=== PATIENT | female | born 1965 | race African-American/Black ===

== ENCOUNTER 2017-08-10 18:54 | Emergency (ER) | payer SELFPAY ==
[~2017-08-10] VITALS: Ht 152.4 cm; Wt 85.7 kg
[~2017-08-10 18:54] MED LIST: AMLODIPINE BESY10 MG ORAL; AUGMENTIN 875-1 EAC1 ORAL; BENAZEPRIL HCL20 MG ORAL; METFORMIN HCL750 MG ORAL; NORCO 5-325 TA1 EACH ORAL; SIMVASTATIN20 MG ORAL; TENORMIN25 MG ORAL
[2017-08-10 19:19] VITALS: BP 154/74
[2017-08-10] MEDS ORDERED: Norco 5mg/325mg tab ORAL ONE (19:45)
--- NOTE | 2017-08-10 19:45 | Emergency Room Report ---
History of Present Illness General Chief Complaint: Upper Extremity Injury Source: Patient (Jess Houston) Present Illness HPI Patient is a 51-year-old female presents today with complaints of left wrist pain that began yesterday. Today she denies any falls or injuries. She has pain began while she was at work. As she had states he is currently 9 and 10 in severity and has been using Motrin with minimal relief. She denies numbness , tingling, loss of sensation. (Jess Houston) Allergies: Coded Allergies: No Known Allergies (Verified Allergy, Unknown, 10/19/06) Patient History Now: No - hysterectomy : 2 Para: 1 Reviewed Nursing Documentation: PMH: Agreed, PSxH: Agreed (Jess Houston) Nursing Documentation-PMH Hx Hypertension: Yes Hx Diabetes: Yes (Jess Houston) Review of Systems Musculoskeletal: Reports: joint pain - left wrist pain All Other Systems: negative except mentioned in HPI (Jess Houston) Physical Exam Vital Signs Date Time Temp Pulse Resp B/P (MAP) Pulse Ox O2 Delivery O2 Flow Rate FiO2 08/10/17 19:16 101.1 73 18 154/74 98 Room Air Sp02 EP Interpretation: reviewed, normal General Appearance: no apparent distress, alert, GCS 15, non-toxic Head: normocephalic, atraumatic Eyes: bilateral eye normal inspection, bilateral eye PERRL ENT: hearing grossly normal, normal pharynx, no angioedema, normal voice Neck: full range of motion, supple/symm/no masses Respiratory: chest non-tender, lungs clear, normal breath sounds, speaking full sentences Cardiovascular #1: regular rate, rhythm, no edema Cardiovascular #2: 2+ carotid (R), 2+ carotid (L), 2+ radial (R), 2+ radial (L) , 2+ dorsalis pedis (R), 2+ dorsalis pedis (L) Gastrointestinal: normal bowel sounds, non tender, soft, non-distended, no guarding, no rebound Rectal: deferred Genitourinary: normal inspection, no CVA tenderness Musculoskeletal: back normal, gait/station normal, normal range of motion, other - left wrist pain Neurologic: alert, oriented x3, responsive, motor strength/tone normal, sensory intact, speech normal, other - radial pulse present and equal Psychiatric: judgement/insight normal, memory normal, mood/affect normal, no suicidal/homicidal ideation Reflexes: 3+ bicep (R), 3+ bicep (L), 3+ tricep (R), 3+ tricep (L), 3+ knee (R) , 3+ knee (L) Skin: normal color, no rash, warm/dry, well hydrated Lymphatic: no adenopathy (Jess Houston) Medical Decision Making PA Attestation Supervising physician is Dr. Cedeno (Jess Houston) Diagnostic Impression: Primary Impression: Left wrist sprain ER Course No evidence of fracture on x-ray. Patient is placed in a volar splint of the left wrist, neurovascularly intact before and after splint is placed. Evaluation at 2011, patient states it is improving with medication. She is discharged home with instruction to follow up with PCP for further evaluation and management. Patient understands and is agreeable plan. (Jess Houston) ER Course I have reviewed the PA's interpretation of Xray results and agree with findings. (Anson Cedeno M.D.) Other X-Ray Diagnostic Results Other X-Ray Diagnostic Results : # of Views/Limited Vs Complete: 3 View Indication: Pain EP Interpretation: Yes PA Xray: Interpretation reviewed Interpretation: no dislocation, no soft tissue swelling, no fractures Impression: No acute disease PA Scribe Text AJ (Jess Houston.AConsuelo) Last Vital Signs Date Time Temp Pulse Resp B/P (MAP) Pulse Ox O2 Delivery O2 Flow Rate FiO2 08/10/17 19:19 101.1 73 18 154/74 98 Room Air Status: improved (Jess Houston P.AConsuelo) Disposition: HOME, SELF-CARE Condition: Stable Scripts Tramadol Hcl* (ULTRAM*) 50 Mg Tablet 50 MG ORAL Q6H Y for For Pain, #30 TAB 0 Refills Prov: Jess Houston 08/10/17 Patient Instructions: Wrist Sprain Jess Houston Aug 10, 2017 19:45 Anson Cedeno M.D. Aug 15, 2017 06:50
[2017-08-10] MEDS ORDERED: TRAMADOL HCL50 MG ORAL (20:14)
[2017-08-10 20:15] VITALS: BP 151/78
--- NOTE | 2017-08-11 09:48 | Diagnostic Imaging Report ---
Indication: PAIN Technique: XRAY WRIST 2 VIEWS LEFT Comparison: None. Findings: The osseous structures are intact. There is no fracture or destruction. The visualized joints are normal. The soft tissues are unremarkable. Impression: Normal.
== END 2017-08-10 20:15 | disposition home or self-care (01) ==
LOC: EMR 19:50
DX: S63.502A Unspecified sprain of left wrist, initial encounter (principal); X58.XXXA Exposure to other specified factors, initial encounter; Y93.9 Activity, unspecified; Y99.9 Unspecified external cause status; M25.532 Pain in left wrist; I10 Essential (primary) hypertension; E11.9 Type 2 diabetes mellitus without complications
CPT/HCPCS: 29125; 99283